=== PATIENT | male | born 1990 | race Caucasian/White ===

== ENCOUNTER 2021-09-04 10:00 | Inpatient (IN) | payer MEDICAID, OTHER ==
[~2021-09-04] VITALS: Ht 177.8 cm; Wt 64.9 kg
[2021-09-04] MEDS ORDERED: SODIUM CHLORIDE 0.9% 1,000 ML IV ONE (11:00)
[2021-09-04] MEDS ORDERED: ONDANSETRON HCL 4 MG/2 ML VIAL IVP ONE (11:00)
[2021-09-04] MEDS ORDERED: KETOROLAC TROMETHAMINE 30 MG/ML VIAL IVP ONE (11:00)
[2021-09-04 11:20] LABS: BASOPHILS % (AUTO) 0.3 % (0.0-2.0); EOSINOPHILS % (AUTO) 0 % (1.0-6.0); HEMATOCRIT 46.4 % (41-53); LYMPHOCYTES # (AUTO) 1.1 K/uL (1.0-4.8); LYMPHOCYTES % (AUTO) 12.7 % (22.0-44.0); MEAN CORPUSCULAR HGB CONC 34.5 G/dL (31.0-37.0); MEAN CORPUSCULAR VOLUME 87 fL (80-100); MONOCYTES # (AUTO) 0.3 K/uL (0.1-1.0); NEUTROPHILS # (AUTO) 7.4 K/uL (1.8-7.7); PLATELET COUNT (AUTO) 322 K/uL (150-450); RED BLOOD CELL COUNT(AUTO) 5.34 MIL/uL (4.50-5.90); RED CELL DISTRIBUTION WIDTH 13.7 % (11.5-14.5)
[2021-09-04 11:30] LABS: ANION GAP 13 mmol/L (8-16); CALCIUM, TOTAL 9.6 mg/dL (8.8-10.5); CARBON DIOXIDE 30 mmol/L (22-29); CHLORIDE 101 mmol/L (98-107); CREATININE 0.95 mg/dL (0.60-1.30); GLOMERULAR FILTR. RATE CALC > 60 mL/min (>60); GLUCOSE,RANDOM 111 mg/dL (70-110); POTASSIUM 4.2 mmol/L (3.5-5.1); SODIUM SERUM 144 mmol/L (136-145); UREA NITROGEN, BLOOD 13 mg/dL (7-18)
[2021-09-04 11:37] LABS: ALANINE AMINOTRANSFERASE 40 U/L (12-78); ALBUMIN 4.3 g/dL (3.4-5.0); ALKALINE PHOSPHATASE 100 U/L (46-116); ASPARTATE AMINOTRANSFERASE 25 U/L (15-37); BILIRUBIN,TOTAL 0.9 mg/dL (0.1-1.0); TOTAL PROTEIN, SERUM 8.9 g/dL (6.4-8.2)
[2021-09-04 14:14] LABS: AMPHET/METH SCREEN,URINE POSITIVE (NEGATIVE); BARBITURATE SCREEN, URINE NEGATIVE (NEGATIVE); BENZODIAZEPINES SCREEN,URINE NEGATIVE (NEGATIVE); CANNABINOID SCREEN,URINE POSITIVE (NEGATIVE); COCAINE SCREEN,URINE NEGATIVE (NEGATIVE); METHADONE SCREEN, URINE NEGATIVE (NEGATIVE); OPIATE SCREEN,URINE NEGATIVE (NEGATIVE)
[2021-09-04 14:15] LABS: PHENCYCLIDINE SCREEN,URINE NEGATIVE (NEGATIVE)
[2021-09-04 17:33] LABS: COVID AG,FIA SOURCE NASOPHARYNGEAL
[2021-09-04 21:05] VITALS: BP 108/62
[2021-09-04] MEDS ORDERED: NICOTINE 14 MG/24 HOUR PATCH TD PRN (21:30)
[2021-09-04] MEDS ORDERED: ACETAMINOPHEN 325 MG TABLET PO PRN (21:30)
[2021-09-05 02:37] VITALS: BP 110/68
[2021-09-05] MEDS: LORazepam 1 MG TABLET PO PRN ×3 (02:37→09:50)
[2021-09-05] MEDS: ZOLPIDEM TARTRATE 10 MG TABLET PO PRN (02:37)
[2021-09-05] MEDS: HALOPERIDOL 5 MG TABLET PO PRN ×2 (03:49→22:00)
[2021-09-05] MEDS ORDERED: ACETAMINOPHEN 325 MG TABLET PO PRN (07:30)
[2021-09-05] MEDS ORDERED: MAGNESIUM HYDROXIDE SUSPENSION 30 ML UDCUP PO PRN (07:30)
[2021-09-05] MEDS ORDERED: ALBUTEROL SULFATE HFA 90 MCG/PUFF 8 GM INHALER IH PRN (07:30)
[2021-09-05] MEDS ORDERED: CloNIDine HCL 0.1 MG TABLET PO PRN (07:30)
[2021-09-05] MEDS ORDERED: NICOTINE 14 MG/24 HOUR PATCH TD PRN (07:30)
[2021-09-05] MEDS ORDERED: IBUPROFEN 400 MG TABLET PO PRN (07:30)
[2021-09-05] MEDS ORDERED: LOPERAMIDE HCL 2 MG CAPSULE PO PRN (07:30)
[2021-09-05] MEDS ORDERED: GuaiFENesin/D-METHORPHAN [SUGAR-FREE] 200-20MG/10 ML SYRUP UDCUP PO PRN ×2 (07:30→12:30)
[2021-09-05] MEDS ORDERED: PETROLATUM,WHITE 28 GM JELLY TP PRN (07:30)
[2021-09-05] MEDS ORDERED: DOCUSATE SODIUM 100 MG CAPSULE PO PRN (07:30)
[2021-09-05 08:53] LABS: CHOL/HDL RATIO 3.3 (4.2-7.3)
[2021-09-05] MEDS: ONDANSETRON HCL 4 MG TABLET PO PRN (11:47)
[2021-09-05 12:26] VITALS: BP 127/70
[2021-09-05] MEDS: HydrOXYzine PAMOATE 50 MG CAPSULE PO PRN ×2 (13:18→17:33)
[2021-09-05] MEDS: DICYCLOMINE HCL 10 MG CAPSULE PO PRN ×2 (13:26→21:34)
[2021-09-05 16:16] VITALS: BP 125/76
[2021-09-05 16:30] VITALS: BP 129/84
[2021-09-05 20:30] VITALS: BP 135/76
[2021-09-05] MEDS: MIRTAZAPINE 15 MG TABLET PO SCH (20:33)
[2021-09-05] MEDS: MAG HYDROX/AL HYDROX/SIMETH ES 30 ML SUSPENSION UDCUP PO PRN (23:34)
[2021-09-06] MEDS: ZOLPIDEM TARTRATE 10 MG TABLET PO PRN ×2 (02:40→22:08)
[2021-09-06] MEDS: ONDANSETRON HCL 4 MG TABLET PO PRN (02:41)
[2021-09-06 07:05] VITALS: BP 102/70
[2021-09-06 08:30] VITALS: BP 140/100
[2021-09-06] MEDS: DICYCLOMINE HCL 10 MG CAPSULE PO PRN (08:37)
[2021-09-06] MEDS: HALOPERIDOL 5 MG TABLET PO PRN (10:43)
[2021-09-06] MEDS: HydrOXYzine PAMOATE 50 MG CAPSULE PO PRN ×2 (10:43→18:07)
[2021-09-06 11:44] LABS: ANION GAP 8 mmol/L (8-16); CALCIUM, TOTAL 8.6 mg/dL (8.8-10.5); CARBON DIOXIDE 31 mmol/L (22-29); CHLORIDE 105 mmol/L (98-107); CREATININE 1.16 mg/dL (0.60-1.30); GLOMERULAR FILTR. RATE CALC > 60 mL/min (>60); GLUCOSE,RANDOM 105 mg/dL (70-110); LIPASE 376 U/L (73-393); POTASSIUM 3.7 mmol/L (3.5-5.1); SODIUM SERUM 144 mmol/L (136-145); UREA NITROGEN, BLOOD 13 mg/dL (7-18)
[2021-09-06 12:30] VITALS: BP 127/89
[2021-09-06 12:42] VITALS: BP 127/70
[2021-09-06] MEDS: MAG HYDROX/AL HYDROX/SIMETH ES 30 ML SUSPENSION UDCUP PO PRN ×2 (12:42→22:04)
[2021-09-06] MEDS: MIRTAZAPINE 15 MG TABLET PO SCH (20:24)
[2021-09-07 02:30] VITALS: BP 125/82
[2021-09-07] MEDS: DICYCLOMINE HCL 10 MG CAPSULE PO PRN (02:30)
[2021-09-07] MEDS: MAG HYDROX/AL HYDROX/SIMETH ES 30 ML SUSPENSION UDCUP PO PRN (04:22)
[2021-09-07 09:06] VITALS: BP 141/92
[2021-09-07 09:07] VITALS: BP 141/91
[2021-09-07] MEDS ORDERED: MIRT-89 PO (11:20)
== END 2021-09-07 13:50 | disposition home or self-care (01) | DRG 751 ==
LOC: EMS 10:00 → 3EI 18:53
PROVIDERS: ADMIT Psychiatry & Neurology Psychiatry; ATTEND Psychiatry & Neurology Psychiatry
DX: F33.2 Major depressive disorder, recurrent severe without psychotic features (principal); R45.851 Suicidal ideations; F11.10 Opioid abuse, uncomplicated; F17.200 Nicotine dependence, unspecified, uncomplicated; G89.29 Other chronic pain; Z20.822 Contact with and (suspected) exposure to COVID-19; F15.99 Other stimulant use, unspecified with unspecified stimulant-induced disorder; F12.99 Cannabis use, unspecified with unspecified cannabis-induced disorder; K59.00 Constipation, unspecified; Z65.3 Problems related to other legal circumstances; Z79.899 Other long term (current) drug therapy; Z91.51 Personal history of suicidal behavior; Z59.00 Homelessness unspecified
CPT/HCPCS: 70110; 74019; 80048; 80053; 80061; 83690; 85025; 99285; J1885; J2405; J7030; Q0162